=== PATIENT | male | born 1995 | race Caucasian/White ===

== ENCOUNTER 2025-03-20 21:00 | Emergency (ER) | payer MEDICAID, OTHER ==
[~2025-03-20] VITALS: Ht 180.3 cm; Wt 74.0 kg
[2025-03-20 21:11] VITALS: TEMP 36.7; O2SAT 99
[2025-03-20 21:53] LABS: BASOPHILS % 0.5 % (0.0-2.0); EOSINOPHILS % 7.7 % (0.0-5.0); HEMATOCRIT. 41.3 % (42.0-52.0); HEMOGLOBIN. 14.1 g/dL (14.0-18.0); LYMPHOCYTES % 34.0 % (20.0-50.0); MEAN PLATELET VOLUME 10.1 fl (7.4-10.4); MONOCYTES % 5.6 % (2.0-8.0); NEUTROPHILS % 52.2 % (40.0-76.0); PLATELET 165 x1000/uL (130-400); RED BLOOD CELL COUNT 4.42 mill/uL (4.7-6.1); RED CELL DISTRIBUTION WIDTH 13.0 % (11.6-14.6)
[2025-03-20 22:03] LABS: INR 1.0
[2025-03-20 22:22] LABS: CREATININE 0.8 mg/dL (0.6-1.3); UREA NITROGEN BLOOD 11 mg/dL (9-23)
[2025-03-20 22:32] LABS: CLARITY URINE CLEAR (CLEAR); COLOR URINE YELLOW (YELLOW); GLUCOSE URINE NEGATIVE (NEGATIVE); KETONES URINE NEGATIVE (NEGATIVE); LEUKOCYTE ESTERASE URINE NEGATIVE (NEGATIVE); NITRITE URINE NEGATIVE (NEGATIVE); OCCULT BLOOD URINE NEGATIVE (NEGATIVE); PH URINE 5.5 (4.5-8.0); PROTEIN URINE NEGATIVE (NEGATIVE); SPECIFIC GRAVITY URINE 1.023 (1.005-1.030); UROBILINOGEN URINE 0.2 E.U./dL (0.2-1.0)
[2025-03-21] MEDS: IOHEXOL-300 100 ML BOTTLE ONE (00:25)
[2025-03-21 00:54] VITALS: BP 113/67; PULSE 68; RESP 15; O2SAT 100
== END 2025-03-21 00:55 | disposition home or self-care (01) ==
LOC: ER 21:00
DX: K92.1 Melena (principal); J45.909 Unspecified asthma, uncomplicated; Z91.013 Allergy to seafood
CPT/HCPCS: 99285; 74177; 80048; 81003; 83690; 85025; 85610; 85730; 86850; 86900; 86901; 36415; Q9967